=== PATIENT | female | born 1985 ===

== ENCOUNTER 2017-01-05 23:38 | Emergency (ER) | payer SELFPAY ==
[2017-01-06] MEDS ORDERED: TYLENOL PO ONE (01:05)
[2017-01-06 05:20] VITALS: BP 128/76
[2017-01-06] MEDS ORDERED: PERCOCET 5/325 PO ONE (06:51)
--- NOTE | 2017-01-06 06:55 | Emergency Department Report ---
ED ENT HPI - General Chief complaint: Dental/Oral Stated complaint: TOOTHACHE W/SWELLING/EARACHE/TONGUE SORE Time Seen by Provider: 01/06/17 06:51 Source: patient Mode of arrival: Ambulatory Limitations: No Limitations - History of Present Illness Initial comments: 31-year-old -[place] female comes in with complaints of tooth date which started about 4 days ago. Patient reports she is having difficulty opening her mouth difficulty swallowing pain as a 10 out of 10 she's not been able to eat she is able to drink. She also complains that the pain is now traveling to her left ear. No past medical history currently taking no medications has no known drug allergies. MD complaint: tooth pain -: days(s) (4) Location: tooth # (32,17,16,1) Severity: severe Severity scale (0 -10): 10 Quality: aching, other (throbbing) Consistency: constant Improves with: none Worsens with: none Associated Symptoms: other (left ear pain) - Related Data Previous Rx's Medication Instructions Recorded Last Taken Type Clindamycin [Clindamycin CAP] 300 mg PO Q8H #30 cap 01/06/17 Unknown Rx Ibuprofen [Motrin 800 MG tab] 800 mg PO Q8HR PRN #30 tablet 01/06/17 Unknown Rx Allergies Allergy/AdvReac Type Severity Reaction Status Date / Time No Known Allergies Allergy Unverified 01/06/17 01:00 ED Dental HPI - General Chief complaint: Dental/Oral Stated complaint: TOOTHACHE W/SWELLING/EARACHE/TONGUE SORE Time Seen by Provider: 01/06/17 06:51 Source: patient Mode of arrival: Ambulatory Limitations: No Limitations - Related Data Previous Rx's Medication Instructions Recorded Last Taken Type Clindamycin [Clindamycin CAP] 300 mg PO Q8H #30 cap 01/06/17 Unknown Rx Ibuprofen [Motrin 800 MG tab] 800 mg PO Q8HR PRN #30 tablet 01/06/17 Unknown Rx Allergies Allergy/AdvReac Type Severity Reaction Status Date / Time No Known Allergies Allergy Unverified 01/06/17 01:00 ED Review of Systems ROS: Stated complaint: TOOTHACHE W/SWELLING/EARACHE/TONGUE SORE Other details as noted in HPI Constitutional: denies: chills, fever ENT: ear pain (lt), dental pain Respiratory: denies: cough, shortness of breath, wheezing Cardiovascular: denies: chest pain, palpitations Endocrine: no symptoms reported Gastrointestinal: denies: abdominal pain, nausea, diarrhea Genitourinary: denies: urgency, dysuria, discharge Musculoskeletal: denies: back pain, joint swelling, arthralgia Skin: denies: rash, lesions Neurological: denies: headache, weakness, paresthesias Psychiatric: denies: anxiety, depression Hematological/Lymphatic: denies: easy bleeding, easy bruising ED Past Medical Hx - Past Medical History Previous Medical History?: No - Surgical History Past Surgical History?: No - Social History Smoking Status: Current Every Day Smoker Substance Use Type: Alcohol - Medications Home Medications: Home Medications Medication Instructions Recorded Confirmed Last Taken Type Clindamycin [Clindamycin CAP] 300 mg PO Q8H #30 cap 01/06/17 Unknown Rx Ibuprofen [Motrin 800 MG tab] 800 mg PO Q8HR PRN #30 tablet 01/06/17 Unknown Rx ED Physical Exam - General Limitations: No Limitations General appearance: alert, anxious, other (ears to be in pain crying) - Head Head exam: Present: atraumatic, normocephalic - Eye Eye exam: Present: PERRL - ENT ENT exam: Present: mucous membranes moist - Expanded ENT Exam Expanded Teeth exam: Present: dental caries, gingival enlargement - Neck Neck exam: Present: normal inspection. Absent: tenderness - Respiratory Respiratory exam: Present: normal lung sounds bilaterally - Cardiovascular Cardiovascular Exam: Present: regular rate, normal rhythm, normal heart sounds ED Course Vital Signs 01/06/17 01/06/17 01/06/17 01:00 01:09 05:20 Temperature 98.4 F Pulse Rate 80 72 Respiratory 18 18 18 Rate Blood Pressure 119/84 Blood Pressure 128/76 [Left] O2 Sat by Pulse 99 99 Oximetry ED Medical Decision Making - Medical Decision Making Patient's been evaluated by this provider fast track. Discussed patient give her pain medication now we will discharge patient on antibiotics and pain medication and referral to dental patient verbalized understanding. Critical care attestation.: If time is entered above; I have spent that time in minutes in the direct care of this critically ill patient, excluding procedure time. ED Disposition Clinical Impression: Dental abscess Disposition: DISCHARGED TO HOME OR SELFCARE Is pt being admited?: No Does the pt Need Aspirin: No Condition: Stable Instructions: Dental Abscess (ED) Additional Instructions: Please complete antibiotics as prescribed. Take ibuprofen for pain that I have prescribed for you. It is very important for you to follow up with the dentist that can take care of these abscessed teeth. I have listed several below. Prescriptions: Clindamycin [Clindamycin CAP] 300 mg PO Q8H #30 cap Ibuprofen [Motrin 800 MG tab] 800 mg PO Q8HR PRN #30 tablet PRN Reason: Pain Referrals: PRIMARY CARE, [Primary Care Provider] - 3-5 Days [facility] [Outside] - 3-5 Days [facility] [Outside] - 3-5 Days [facility] [Outside] - 3-5 Days Forms: Work/School Release Form(ED), Accompanied Note
== END 2017-01-06 08:18 | disposition home or self-care (01) ==
LOC: ED 23:38
DX: K04.7 Periapical abscess without sinus (principal); K08.89 Other specified disorders of teeth and supporting structures; F17.200 Nicotine dependence, unspecified, uncomplicated
CPT/HCPCS: 99282